=== PATIENT | female | born 1955 | race Caucasian/White ===

== ENCOUNTER → 2018-04-26 | Outpatient (CLI) | payer SELFPAY ==
--- NOTE | 2018-04-26 13:04 | Diagnostic Imaging Report ---
EXAMINATION: Lumbar spine at 11:58 a.m. INDICATION: Low back pain. TECHNIQUE: AP, lateral, and spot lateral views were obtained. COMPARISON: There are no prior studies available for comparison. FINDINGS: The spot lateral view reveals that there is approximately 3.8 mm of anterior translation of L4 with respect to L5. There is also narrowing of the disc spaces at both L4-L5 and L5-S1. The other intervertebral spaces are fairly well maintained. There is no fracture or acute bony abnormality evident. 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 There is mild symmetrical sclerosis of the sacroiliac joints. There is no paraspinal mass visualized. IMPRESSION: 1. There is no evidence for an acute bony abnormality. 2. There is degenerative disc and bony disease at L4-L5 and L5-S1. 3. If there is clinical concern regarding spinal stenosis or nerve root encroachment, then MRI would be recommended for further study. Dictated by: Dictated on workstation # [id number]
== END ==
LOC: RAD 11:09
PROVIDERS: ATTEND Family Medicine
DX: M51.37 Other intervertebral disc degeneration, lumbosacral region (principal); M89.9 Disorder of bone, unspecified
CPT/HCPCS: 72100